=== PATIENT | female | born 1955 | race Caucasian/White ===

== ENCOUNTER → 2019-02-17 13:44 | Outpatient (CLI) | payer MEDICARE, SELFPAY ==
--- NOTE | 2019-02-17 13:50 | US_ITS ---
PROCEDURE: US TRANSVAGINAL CLINICAL INDICATION: POST MENOPAUSAL BLEEDING COMPARISON: No exams were available for comparison FINDINGS: UTERUS: Status post hysterectomy. The vaginal cuff has an unremarkable appearance. LEFT OVARY: 1.9 x 1.1 cm. Unremarkable RIGHT OVARY: Not visualized The no cul-de-sac fluid. Fluid-filled bowel is noted in the pelvis IMPRESSION: Status post hysterectomy. Right ovary was not visualized. The left ovary has an unremarkable appearance Dictated by: Jonah Azul MD 02/17/2019 17:38 Electronically signed by Jonah Azul MD in [place] 02/17/2019 17:38
== END ==
PROVIDERS: PCP Family Medicine; Visit Provider Nurse Practitioner
DX: N95.0 Postmenopausal bleeding (principal)
CPT/HCPCS: 76830

== ENCOUNTER → 2019-12-28 13:08 | Outpatient (CLI) | payer MEDICARE, SELFPAY ==
--- NOTE | 2019-12-28 13:19 | XR_ITS ---
PROCEDURE: XR FOOT LT MIN 3V CLINICAL INDICATION: L FOOT PAIN COMPARISON: CR FTL3 FOOT-LT-3 VIEWS from 02/01/2016 FINDINGS: Osteoarthritic changes are present at the metatarsal tarsal joint with mild metatarsal varus. Hypertrophic changes are present at the base of the 1st metatarsal tarsal junction laterally. Central erosive changes are present involving the distal aspect of the proximal phalanx of the 2nd and 3rd digit with seagull deformity with decrease in the joint space at this level. This may be seen with erosive osteoarthritis . There are mild osteoarthritic changes of the 1st metatarsophalangeal joint. No acute fracture or dislocation is evident. 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
== END ==
PROVIDERS: PCP Family Medicine; Visit Provider Family Medicine
DX: M79.672 Pain in left foot (principal)
CPT/HCPCS: 73630

== ENCOUNTER → 2021-12-24 06:16 | Outpatient (CLI) | payer MEDICARE, SELFPAY ==
[2021-12-24 18:36] LABS: Chloride 99 mmol/L (98-107); Potassium 4.7 mmoL/L (3.5-5.1); Sodium 136 mmol/L (136-145)
[2021-12-24 18:38] LABS: Blood Urea Nitrogen 11 mg/dl (7-17); Estimated Glomerular Filt Rate 100 ml/min (>60); GFR (African American) 121 ML/MIN (>60)
[2021-12-24 18:39] LABS: Alanine Aminotransferase 22 U/L (12-78); Albumin/Globulin Ratio 1.5 (1.1-1.8); Alkaline Phosphatase 108 U/L (38-126); Anion Gap 16.7 mEq/L (5-15); Aspartate Amino Transferase 33 U/L (14-36); Carbon Dioxide 25 mmol/L (22.0-30.0); Globulin 2.7 g/dL (1.3-3.2); Glucose 240 mg/dl (74-100); Total Protein,Serum 6.7 g/dl (6.3-8.2)
[2021-12-24 19:14] LABS: Thyroid Stimulating Hormone 0.13 uIU/mL (0.465-4.68)
[2021-12-24 19:24] LABS: Bilirubin,Total < 0.1 mg/dl (0.2-1.3)
[2021-12-24 21:10] LABS: Erythrocyte Sedimentation Rate 21 mm/hr (0-30)
[2021-12-24 22:33] LABS: Vitamin B12 528 pg/mL (239-931)
== END ==
PROVIDERS: PCP Family Medicine; Visit Provider Family Medicine
DX: E11.9 Type 2 diabetes mellitus without complications (principal); M54.9 Dorsalgia, unspecified; Z79.84 Long term (current) use of oral hypoglycemic drugs; Z79.899 Other long term (current) drug therapy
CPT/HCPCS: 80053; 82607; 84443; 85651

== ENCOUNTER → 2022-05-26 23:29 | Outpatient (CLI) | payer MEDICARE, SELFPAY ==
[2022-05-26 18:29] LABS: Creatinine,Urine Random 105 mg/dL (Not Estab.)
[2022-05-26 18:32] LABS: Alanine Aminotransferase 12 U/L (12-78); Albumin Level 3.9 g/dl (3.5-5.0); Albumin/Globulin Ratio 1.6 (1.1-1.8); Alkaline Phosphatase 72 U/L (38-126); Anion Gap 6.8 mEq/L (5-15); Aspartate Amino Transferase 20 U/L (14-36); Bilirubin,Total 0.7 mg/dl (0.2-1.3); Blood Urea Nitrogen 16 mg/dl (7-17); Calcium 8.7 mg/dl (8.4-10.2); Carbon Dioxide 30 mmol/L (22.0-30.0); Chloride 101 mmol/L (98-107); Chol/HDL Ratio 3.3 (1-3.5); Cholesterol 150 mg/dl (140-200); Estimated Glomerular Filt Rate 63 ml/min (>60); GFR (African American) 76 ML/MIN (>60); Globulin 2.5 g/dL (1.3-3.2); Glucose 143 mg/dl (74-100); HDL Cholesterol 46 mg/dl (40-60); Potassium 3.8 mmoL/L (3.5-5.1); Sodium 134 mmol/L (136-145); Total Protein,Serum 6.4 g/dl (6.3-8.2); Triglycerides 191 mg/dl (30-150); VLDL Cholesterol 38 mg/dL (0-40)
[2022-05-26 18:43] LABS: Direct LDL Cholesterol 76.24 mg/dL (100-129)
[2022-05-26 18:49] LABS: Free T4 (Free Thyroxine) 1.03 ng/dl (0.78-2.19)
[2022-05-26 19:01] LABS: Microalbumin < 6.000 mg/L (0-16.7)
[2022-05-26 19:03] LABS: Thyroid Stimulating Hormone 0.09 uIU/mL (0.465-4.68)
[2022-05-26 19:11] LABS: Basophils % 0.6 % (0.1-2.0); Eosinophils # 0.2 K/mm3 (0.0-0.4); Hematocrit 40.2 % (37.0-47.0); Hemoglobin 12.8 g/dL (12.2-16.2); Lymphocytes # 1.4 K/mm3 (0.7-4.5); Lymphocytes % 18.2 % (10-50); Mean Corpuscular HGB Conc 31.9 g/dL (31.8-35.4); Mean Corpuscular Hemoglobin 29.6 pg (27.0-31.2); Mean Corpuscular Volume 92.7 fl (81-99); Mean Platelet Volume 8.8 fl (7.4-10.4); Monocytes # 0.4 K/mm3 (0.1-1.0); Monocytes % 5.2 % (1.7-9.3); Neutrophils # 5.8 K/mm3 (1.8-7.8); Neutrophils % 74.1 % (37.0-80.0); Platelet Count 391 K/mm3 (142-424); Red Blood Count 4.33 M/mm3 (4.20-5.40); Red Cell Distribution Width 13.4 % (11.5-17.5); White Blood Count 7.8 K/mm3 (4.8-10.8)
[2022-05-26 19:45] LABS: Hemoglobin A1C 5.8 % (4.0-6.0)
== END ==
PROVIDERS: PCP Nurse Practitioner; Visit Provider Nurse Practitioner
DX: E03.9 Hypothyroidism, unspecified (principal); E11.9 Type 2 diabetes mellitus without complications; E78.5 Hyperlipidemia, unspecified; I10 Essential (primary) hypertension; Z79.84 Long term (current) use of oral hypoglycemic drugs
CPT/HCPCS: 80053; 80061; 82043; 82570; 83036; 84439; 84443; 85025

== ENCOUNTER → 2022-09-08 14:40 | Outpatient (CLI) | payer MEDICARE, SELFPAY ==
[2022-09-08 19:30] LABS: Hemoglobin A1C 5.7 % (4.0-6.0)
[2022-09-08 19:34] LABS: Alanine Aminotransferase 13 U/L (12-78); Albumin Level 4.1 g/dl (3.5-5.0); Albumin/Globulin Ratio 1.6 (1.1-1.8); Alkaline Phosphatase 95 U/L (38-126); Aspartate Amino Transferase 22 U/L (14-36); Bilirubin,Total 0.4 mg/dl (0.2-1.3); Blood Urea Nitrogen 12 mg/dl (7-17); Calcium 9.3 mg/dl (8.4-10.2); Carbon Dioxide 30 mmol/L (22.0-30.0); Chloride 97 mmol/L (98-107); Chol/HDL Ratio 2.4 (1-3.5); Cholesterol 200 mg/dl (140-200); Estimated Glomerular Filt Rate 84 ml/min (>60); GFR (African American) 101 ML/MIN (>60); Globulin 2.6 g/dL (1.3-3.2); Glucose 107 mg/dl (74-100); HDL Cholesterol 82 mg/dl (40-60); Sodium 137 mmol/L (136-145); Total Protein,Serum 6.7 g/dl (6.3-8.2); Triglycerides 187 mg/dl (30-150); VLDL Cholesterol 37 mg/dL (0-40)
[2022-09-08 19:45] LABS: Direct LDL Cholesterol 92.84 mg/dL (100-129)
[2022-09-08 19:53] LABS: Free T4 (Free Thyroxine) 1.18 ng/dl (0.78-2.19)
[2022-09-08 19:56] LABS: 25-OH Vitamin D, Total < 12.8 ng/mL (30-100)
[2022-09-08 20:07] LABS: Thyroid Stimulating Hormone < 0.02 uIU/mL (0.465-4.68)
[2022-09-08 20:26] LABS: Vitamin B12 333 pg/mL (239-931)
== END ==
PROVIDERS: PCP Nurse Practitioner; Visit Provider Nurse Practitioner
DX: E03.9 Hypothyroidism, unspecified (principal); E11.9 Type 2 diabetes mellitus without complications; E53.8 Deficiency of other specified B group vitamins; E55.9 Vitamin D deficiency, unspecified; E78.5 Hyperlipidemia, unspecified; I10 Essential (primary) hypertension; F31.9 Bipolar disorder, unspecified; Z79.84 Long term (current) use of oral hypoglycemic drugs
CPT/HCPCS: 80053; 80061; 82306; 82607; 83036; 84439; 84443

== ENCOUNTER → 2023-03-17 07:13 | Outpatient (CLI) | payer MEDICARE, SELFPAY ==
[2023-03-17 19:59] LABS: Alanine Aminotransferase 18 U/L (12-78); Albumin Level 4.4 g/dl (3.5-5.0); Albumin/Globulin Ratio 1.5 (1.1-1.8); Alkaline Phosphatase 87 U/L (38-126); Anion Gap 9.7 mEq/L (5-15); Aspartate Amino Transferase 31 U/L (14-36); Bilirubin,Total 0.5 mg/dl (0.2-1.3); Blood Urea Nitrogen 17 mg/dl (7-17); Calcium 8.9 mg/dl (8.4-10.2); Carbon Dioxide 30 mmol/L (22.0-30.0); Chloride 101 mmol/L (98-107); Chol/HDL Ratio 2.4 (1-3.5); Cholesterol 214 mg/dl (140-200); Estimated Glomerular Filt Rate 63 ml/min (>60); GFR (African American) 76 ML/MIN (>60); Glucose 113 mg/dl (74-100); HDL Cholesterol 88 mg/dl (40-60); Potassium 3.7 mmoL/L (3.5-5.1); Sodium 137 mmol/L (136-145); Total Protein,Serum 7.4 g/dl (6.3-8.2); Triglycerides 179 mg/dl (30-150); VLDL Cholesterol 36 mg/dL (0-40)
[2023-03-17 20:05] LABS: Hemoglobin A1C 5.5 % (4.0-6.0)
[2023-03-17 20:12] LABS: Direct LDL Cholesterol 106.22 mg/dL (100-129)
[2023-03-17 20:13] LABS: Free T4 (Free Thyroxine) 1.07 ng/dl (0.78-2.19)
[2023-03-17 20:27] LABS: Thyroid Stimulating Hormone 0.99 uIU/mL (0.465-4.68)
[2023-03-17 20:58] LABS: Vitamin B12 > 1000 pg/mL (239-931)
== END ==
PROVIDERS: PCP Nurse Practitioner; Visit Provider Nurse Practitioner
DX: E03.9 Hypothyroidism, unspecified (principal); E11.9 Type 2 diabetes mellitus without complications; E53.8 Deficiency of other specified B group vitamins; E78.5 Hyperlipidemia, unspecified; F31.9 Bipolar disorder, unspecified; I10 Essential (primary) hypertension; Z79.84 Long term (current) use of oral hypoglycemic drugs
CPT/HCPCS: 80053; 80061; 82607; 83036; 84439; 84443

== ENCOUNTER 2023-06-09 18:50 | Outpatient (CLI) | payer MEDICARE, SELFPAY ==
[2023-06-09 18:48] LABS: Alanine Aminotransferase 11 U/L (12-78); Albumin/Globulin Ratio 1.5 (1.1-1.8); Alkaline Phosphatase 94 U/L (38-126); Anion Gap 10.3 mEq/L (5-15); Aspartate Amino Transferase 20 U/L (14-36); Bilirubin,Total 0.3 mg/dl (0.2-1.3); Blood Urea Nitrogen 14 mg/dl (7-17); Calcium 9.4 mg/dl (8.4-10.2); Carbon Dioxide 31 mmol/L (22.0-30.0); Chloride 100 mmol/L (98-107); Estimated Glomerular Filt Rate 72 ml/min (>60); GFR (African American) 87 ML/MIN (>60); Globulin 2.7 g/dL (1.3-3.2); Glucose 85 mg/dl (74-100); Potassium 4.3 mmoL/L (3.5-5.1); Sodium 137 mmol/L (136-145); Total Protein,Serum 6.7 g/dl (6.3-8.2)
[2023-06-09 19:13] LABS: Thyroid Stimulating Hormone 0.03 uIU/mL (0.465-4.68)
== END 2023-06-09 23:59 ==
LOC: LAB.DROPOF 18:50
PROVIDERS: PCP Family Medicine; Visit Provider Family Medicine
DX: I10 Essential (primary) hypertension; E03.8 Other specified hypothyroidism
CPT/HCPCS: 80053; 84443

== ENCOUNTER 2023-09-08 15:49 | Outpatient (CLI) | payer MEDICARE, SELFPAY ==
[2023-09-08 18:30] LABS: Hemoglobin A1C 5.7 % (4.0-6.0)
[2023-09-08 18:34] LABS: Creatinine,Urine Random 180 mg/dL (Not Estab.); Microalbumin/Creatinine Ratio 4.8
[2023-09-08 18:38] LABS: Alanine Aminotransferase 11 U/L (12-78); Albumin Level 4.2 g/dl (3.5-5.0); Albumin/Globulin Ratio 1.4 (1.1-1.8); Alkaline Phosphatase 70 U/L (38-126); Anion Gap 12.9 mEq/L (5-15); Aspartate Amino Transferase 22 U/L (14-36); Bilirubin,Total 0.5 mg/dl (0.2-1.3); Blood Urea Nitrogen 18 mg/dl (7-17); Calcium 9.7 mg/dl (8.4-10.2); Carbon Dioxide 32 mmol/L (22.0-30.0); Chloride 99 mmol/L (98-107); Chol/HDL Ratio 3.3 (1-3.5); Cholesterol 238 mg/dl (140-200); Estimated Glomerular Filt Rate 41 ml/min (>60); GFR (African American) 49 ML/MIN (>60); Glucose 97 mg/dl (74-100); HDL Cholesterol 73 mg/dl (40-60); Potassium 3.9 mmoL/L (3.5-5.1); Sodium 140 mmol/L (136-145); Total Protein,Serum 7.2 g/dl (6.3-8.2); Triglycerides 321 mg/dl (30-150); VLDL Cholesterol 64 mg/dL (0-40)
[2023-09-08 18:49] LABS: Direct LDL Cholesterol 106.04 mg/dL (100-129); Free T4 (Free Thyroxine) 1.22 ng/dl (0.78-2.19)
[2023-09-08 18:54] LABS: 25-OH Vitamin D, Total 38.6 ng/mL (30-100)
[2023-09-08 19:07] LABS: Thyroid Stimulating Hormone 0.51 uIU/mL (0.465-4.68)
[2023-09-08 19:33] LABS: Vitamin B12 > 1000 pg/mL (239-931)
== END 2023-09-08 23:59 | disposition home or self-care (01) ==
LOC: LAB.DROPOF 09-09 15:50
PROVIDERS: PCP Nurse Practitioner; Visit Provider Nurse Practitioner
DX: E55.9 Vitamin D deficiency, unspecified (principal); E11.9 Type 2 diabetes mellitus without complications; I10 Essential (primary) hypertension; E78.5 Hyperlipidemia, unspecified; E03.9 Hypothyroidism, unspecified; E53.8 Deficiency of other specified B group vitamins; Z79.84 Long term (current) use of oral hypoglycemic drugs; Z79.85 Long-term (current) use of injectable non-insulin antidiabetic drugs; Z68.27 Body mass index [BMI] 27.0-27.9, adult
CPT/HCPCS: 80053; 80061; 82043; 82306; 82570; 82607; 83036; 84439; 84443

== ENCOUNTER 2023-09-25 09:21 | Outpatient (CLI) | payer MEDICARE, SELFPAY ==
[2023-09-25 18:54] LABS: Creatinine,Urine Random 151 mg/dL (Not Estab.); Microalbumin < 6.000 mg/L (0-16.7)
== END 2023-09-25 23:59 | disposition home or self-care (01) ==
LOC: LAB.DROPOF 09-28 09:22
PROVIDERS: PCP Nurse Practitioner; Visit Provider Nurse Practitioner
DX: R32 Unspecified urinary incontinence (principal)
CPT/HCPCS: 82043; 82570

== ENCOUNTER 2023-10-14 10:39 | Outpatient (CLI) | payer MEDICARE, SELFPAY ==
[2023-10-14 18:54] LABS: Anion Gap 8.4 mEq/L (5-15); Blood Urea Nitrogen 19 mg/dl (7-17); Calcium 9.3 mg/dl (8.4-10.2); Carbon Dioxide 30 mmol/L (22.0-30.0); Chloride 105 mmol/L (98-107); Estimated Glomerular Filt Rate 41 ml/min (>60); GFR (African American) 49 ML/MIN (>60); Glucose 94 mg/dl (74-100); Potassium 4.4 mmoL/L (3.5-5.1); Sodium 139 mmol/L (136-145)
== END 2023-10-14 23:59 | disposition home or self-care (01) ==
LOC: LAB.DROPOF 10-15 09:07
PROVIDERS: PCP Nurse Practitioner; Visit Provider Nurse Practitioner
DX: E11.9 Type 2 diabetes mellitus without complications (principal); Z79.85 Long-term (current) use of injectable non-insulin antidiabetic drugs
CPT/HCPCS: 80048

== ENCOUNTER 2023-11-12 10:17 | Outpatient (CLI) | payer MEDICARE, SELFPAY ==
[2023-11-12 19:43] LABS: Alanine Aminotransferase 10 U/L (12-78); Albumin Level 3.7 g/dl (3.5-5.0); Albumin/Globulin Ratio 1.3 (1.1-1.8); Alkaline Phosphatase 61 U/L (38-126); Aspartate Amino Transferase 19 U/L (14-36); Bilirubin,Total 0.4 mg/dl (0.2-1.3); Blood Urea Nitrogen 22 mg/dl (7-17); Carbon Dioxide 31 mmol/L (22.0-30.0); Chloride 103 mmol/L (98-107); Chol/HDL Ratio 2.8 (1-3.5); Cholesterol 202 mg/dl (140-200); Estimated Glomerular Filt Rate 41 ml/min (>60); GFR (African American) 49 ML/MIN (>60); Globulin 2.8 g/dL (1.3-3.2); Glucose 90 mg/dl (74-100); HDL Cholesterol 72 mg/dl (40-60); Sodium 138 mmol/L (136-145); Total Protein,Serum 6.5 g/dl (6.3-8.2); Triglycerides 159 mg/dl (30-150); VLDL Cholesterol 32 mg/dL (0-40)
[2023-11-12 19:54] LABS: Direct LDL Cholesterol 94.81 mg/dL (100-129)
[2023-11-12 20:07] LABS: Hemoglobin A1C 5.4 % (4.0-6.0)
== END 2023-11-12 23:59 | disposition home or self-care (01) ==
LOC: LAB.DROPOF 11-13 10:18
PROVIDERS: PCP Nurse Practitioner; Visit Provider Nurse Practitioner
DX: E11.9 Type 2 diabetes mellitus without complications (principal); N28.9 Disorder of kidney and ureter, unspecified; E78.5 Hyperlipidemia, unspecified
CPT/HCPCS: 80053; 80061; 83036

== ENCOUNTER 2024-01-21 18:37 | Outpatient (CLI) | payer MEDICARE, SELFPAY ==
[2024-01-21 19:13] LABS: Albumin Level 4.2 g/dl (3.5-5.0); Chloride 100 mmol/L (98-107); Potassium 3.6 mmoL/L (3.5-5.1); Sodium 139 mmol/L (136-145)
[2024-01-21 19:16] LABS: Alanine Aminotransferase 12 U/L (12-78); Albumin/Globulin Ratio 1.5 (1.1-1.8); Alkaline Phosphatase 80 U/L (38-126); Anion Gap 10.6 mEq/L (5-15); Aspartate Amino Transferase 20 U/L (14-36); Bilirubin,Total 0.5 mg/dl (0.2-1.3); Blood Urea Nitrogen 15 mg/dl (7-17); Calcium 9.4 mg/dl (8.4-10.2); Carbon Dioxide 32 mmol/L (22.0-30.0); Cholesterol 191 mg/dl (140-200); Estimated Glomerular Filt Rate 55 ml/min (>60); GFR (African American) 67 ML/MIN (>60); Globulin 2.8 g/dL (1.3-3.2); Glucose 126 mg/dl (74-100); Triglycerides 164 mg/dl (30-150); VLDL Cholesterol 33 mg/dL (0-40)
[2024-01-21 19:17] LABS: Chol/HDL Ratio 2.8 (1-3.5); HDL Cholesterol 68 mg/dl (40-60)
[2024-01-21 19:32] LABS: Hemoglobin A1C 5.7 % (4.0-6.0)
[2024-01-21 19:34] LABS: Free T4 (Free Thyroxine) 1.24 ng/dl (0.78-2.19)
[2024-01-21 19:44] LABS: Direct LDL Cholesterol 85.06 mg/dL (100-129)
[2024-01-21 19:47] LABS: Thyroid Stimulating Hormone 0.02 uIU/mL (0.465-4.68)
== END 2024-01-21 23:59 | disposition home or self-care (01) ==
LOC: LAB.DROPOF 18:38
PROVIDERS: PCP Nurse Practitioner; Visit Provider Nurse Practitioner
DX: E11.9 Type 2 diabetes mellitus without complications (principal); E78.5 Hyperlipidemia, unspecified; E03.9 Hypothyroidism, unspecified; N28.9 Disorder of kidney and ureter, unspecified
CPT/HCPCS: 80053; 80061; 83036; 84439; 84443

== ENCOUNTER 2024-04-19 08:52 | Outpatient (CLI) | payer MEDICARE, OTHER, SELFPAY ==
[2024-04-19 18:21] LABS: Basophils % 0.6 % (0.1-2.0); Eosinophils # 0.1 K/mm3 (0.0-0.4); Hematocrit 39.9 % (37.0-47.0); Hemoglobin 12.9 g/dL (12.2-16.2); Lymphocytes # 1.9 K/mm3 (0.7-4.5); Lymphocytes % 29.4 % (10-50); Mean Corpuscular HGB Conc 32.3 g/dL (31.8-35.4); Mean Corpuscular Hemoglobin 29.7 pg (27.0-31.2); Mean Corpuscular Volume 91.7 fl (81-99); Mean Platelet Volume 9.7 fl (7.4-10.4); Monocytes # 0.5 K/mm3 (0.1-1.0); Monocytes % 8.2 % (1.7-9.3); Neutrophils # 3.9 K/mm3 (1.8-7.8); Neutrophils % 59.5 % (37.0-80.0); Platelet Count 275 K/mm3 (142-424); Red Blood Count 4.35 M/mm3 (4.20-5.40); Red Cell Distribution Width 13.2 % (11.5-17.5); White Blood Count 6.6 K/mm3 (4.8-10.8)
[2024-04-19 18:53] LABS: Alanine Aminotransferase 12 U/L (12-78); Albumin/Globulin Ratio 1.5 (1.1-1.8); Alkaline Phosphatase 77 U/L (38-126); Aspartate Amino Transferase 22 U/L (14-36); Bilirubin,Total 0.2 mg/dl (0.2-1.3); Blood Urea Nitrogen 24 mg/dl (7-17); Calcium 9.1 mg/dl (8.4-10.2); Carbon Dioxide 29 mmol/L (22.0-30.0); Chloride 99 mmol/L (98-107); Chol/HDL Ratio 2.8 (1-3.5); Cholesterol 200 mg/dl (140-200); Estimated Glomerular Filt Rate 55 ml/min (>60); GFR (African American) 67 ML/MIN (>60); Globulin 2.6 g/dL (1.3-3.2); Glucose 101 mg/dl (74-100); HDL Cholesterol 72 mg/dl (40-60); Sodium 137 mmol/L (136-145); Total Protein,Serum 6.6 g/dl (6.3-8.2); Triglycerides 261 mg/dl (30-150); VLDL Cholesterol 52 mg/dL (0-40)
[2024-04-19 18:54] LABS: Anion Gap 13.2 mEq/L (5-15); Potassium 4.2 mmoL/L (3.5-5.1)
[2024-04-19 19:22] LABS: Hemoglobin A1C 5.9 % (4.0-6.0)
[2024-04-19 19:22] LABS: Creatinine,Urine Random 79 mg/dL (Not Estab.); Microalbumin < 6.000 mg/L (0-16.7)
[2024-04-19 19:24] LABS: Thyroid Stimulating Hormone 3.09 uIU/mL (0.465-4.68)
[2024-04-19 19:39] LABS: 25-OH Vitamin D, Total 37.1 ng/mL (30-100)
[2024-04-19 19:41] LABS: Vitamin B12 994 pg/mL (239-931)
[2024-04-19 19:46] LABS: Direct LDL Cholesterol 110.24 mg/dL (100-129)
[2024-04-19 21:01] LABS: Free T4 (Free Thyroxine) 1.05 ng/dl (0.78-2.19)
== END 2024-04-19 23:59 | disposition home or self-care (01) ==
LOC: LAB.DROPOF 04-20 13:32
PROVIDERS: PCP Nurse Practitioner; Visit Provider Nurse Practitioner
DX: E11.9 Type 2 diabetes mellitus without complications (principal); E78.5 Hyperlipidemia, unspecified; I10 Essential (primary) hypertension; E03.9 Hypothyroidism, unspecified; E55.9 Vitamin D deficiency, unspecified; E53.8 Deficiency of other specified B group vitamins
CPT/HCPCS: 80053; 80061; 82043; 82306; 82570; 82607; 83036; 84439; 84443; 85025

== ENCOUNTER 2024-05-31 10:45 | Outpatient (CLI) | payer MEDICARE, OTHER, SELFPAY ==
--- NOTE | 2024-05-31 10:48 | XR_ITS ---
FINAL REPORT CLINICAL HISTORY: left foot pain, history foot surgery COMPARISON: None FINDINGS: LEFT FOOT: Three views show no evidence of acute displaced fracture or dislocation of the visualized bony architecture. There are postoperative changes involving the second, third, and fourth proximal phalanges. Moderate degenerative changes present in the midfoot. There is no evidence of healing fracture. A minimal plantar calcaneal spur is identified. IMPRESSION: Postoperative changes of the 2nd through 4th proximal phalanges. Moderate degenerative change of the midfoot. Reviewed, Interpreted and Dictated by Zay Cortes MD Transcribed by Ayla Lacey Authenticated and [facility]
== END 2024-05-31 23:59 | disposition home or self-care (01) ==
LOC: RAD 10:46
PROVIDERS: PCP Nurse Practitioner; Visit Provider Nurse Practitioner
DX: M79.672 Pain in left foot (principal)
CPT/HCPCS: 73630

== ENCOUNTER 2024-10-25 14:57 | Outpatient (CLI) | payer MEDICARE, SELFPAY ==
[2024-10-25 19:45] LABS: Albumin Level 4.3 g/dl (3.5-5.0); Chloride 99 mmol/L (98-107); Potassium 4.4 mmoL/L (3.5-5.1); Sodium 133 mmol/L (136-145)
[2024-10-25 19:48] LABS: Alanine Aminotransferase 10 U/L (12-78); Albumin/Globulin Ratio 1.5 (1.1-1.8); Alkaline Phosphatase 76 U/L (38-126); Anion Gap 10.4 mEq/L (5-15); Aspartate Amino Transferase 20 U/L (14-36); Bilirubin,Total 0.5 mg/dl (0.2-1.3); Blood Urea Nitrogen 19 mg/dl (7-17); Calcium 9.4 mg/dl (8.4-10.2); Carbon Dioxide 28 mmol/L (22.0-30.0); Creatinine,Serum 0.90 mg/dl (0.52-1.04); Estimated Glomerular Filt Rate 62 ml/min (>60); GFR (African American) 75 ML/MIN (>60); Globulin 2.8 g/dL (1.3-3.2); Glucose 113 mg/dl (74-100); Total Protein,Serum 7.1 g/dl (6.3-8.2)
[2024-10-25 20:17] LABS: Thyroid Stimulating Hormone 0.35 uIU/mL (0.465-4.68)
--- OUTSIDE RECORDS SUMMARY | 2024-10-26 11:40 | XMS_ITS | Clinical Summary ---
Author Organization [facility] Address [address] [place] [address] Phone Care Team Providers Care Boot Trimmer Name Role Phone Gabino Kong MD Primary Care Provider [phone] [phone] Allergies Active Allergy Reactions Criticality Noted Date Comments Benzodiazepines Other (See Comments) 10/13/2012 Xanax; causes congestion Lisinopril Swelling High 07/03/2021 Medications * This document contains information received from the source organization and may not represent a complete record from that organization. Norethindrone Ac-Eth Estradiol 1-5 mg-mcg Oral Tablet Take by mouth. 1 X DAY Active levothyroxine (SYNTHROID) 75 mcg tablet Take 75 mcg by mouth daily. 1 X DAY Active metformin (GLUCOPHAGE) 1,000 mg tablet Take 1,000 mg by mouth 2 times daily (with meals). Active escitalopram oxalate (LEXAPRO) 20 mg Oral Tablet TAKE 1 TABLET EVERY DAY 30 tablet 12 03/01/2014 Active clonazePAM (KLONOPIN) 1 mg Oral Tablet Take 1 Tab by mouth 2 times daily. 60 Tab 2 09/07/2014 Active lamoTRIgine (LAMICTAL) 150 mg Oral Tablet Take 1 Tab by mouth 3 times daily. 90 Tab 3 09/07/2014 Active losartan (COZAAR) 25 mg Oral TabletIndication s:OAB (overactive bladder) 03/21/2021 Active potassium chloride (KLOR-CON) 10 mEq Oral Tablet Sustained ReleaseIndicatio ns:OAB (overactive bladder) 20 mEq once. 03/15/2021 Active pravastatin (PRAVACHOL) 40 mg Oral TabletIndication s:OAB (overactive bladder) 02/06/2021 Active sulindac (CLINORIL) 200 mg Oral TabletIndication s:OAB (overactive bladder) 02/22/2021 Active triamterene-hydr ochlorothiazide (MAXZIDE-25) 37.5-25 mg Oral TabletIndication s:OAB (overactive bladder) 02/18/2021 Active pantoprazole (PROTONIX) 40 mg Oral Tablet, Delayed Release (E.C.) Take 1 Tablet by mouth daily. 30 Tablet 2 07/15/2021 Active ondansetron (ZOFRAN) 4 mg Oral Tablet Take 1 Tablet by mouth every 6 hours as needed for up to 10 doses. 10 Tablet 2 08/20/2021 Active Active Problems Patient Care Coordination No te Formatting of this note migh t be different from the original. Dr. Néstor Christensen 06/27/14 Problem Noted Date Diagnosed Date Oxygen desaturation 08/20/2021 Obesity, Class II, BMI 35-39.9 07/18/2021 LAP-BAND surgery status 07/18/2021 Dysphagia 07/15/2021 Encounter for screening colonoscopy 07/15/2021 Special screening for malignant neoplasms, colon 07/03/2021 Overview (07/03/2021): Added automatically from request for surgery [id number] Esophageal dysphagia 07/03/2021 Overview (07/03/2021): Added automatically from request for surgery [id number] Mixed incontinence 04/05/2021 Rectocele 04/05/2021 Hypertension 03/20/2009 Diabetes mellitus 03/20/2009 Depression 03/20/2009 Thyroid disorder 03/20/2009 Uterine prolapse 03/20/2009 Cystocele 03/20/2009 Resolved Problems Problem Noted Date Diagnosed Date Resolved Date Hammertoe of second toe of left foot 07/28/2016 07/28/2016 Ganglion cyst of left foot 07/28/2016 0 07/28/2016 Immunizations Immunization Administration Dates Next Due Influenza Vaccine, Unspecified Formulation 01/22 Tdap 07/17/2024 Surgical History Surgery Date Site/Laterality Comments TONSILLECTOMY AND ADENOIDECTOMY VAGAL NERVE STIMULATOR 03/20/2006 HYSTERECTOMY HAMMER TOE SURGERY 07/28/2016 Foot/Left CORRECTION HAMMERTOE DEFORMITY 2ND AND 3RD DIGITS AND ADDUCTED HAMMERTOE 4TH DIGIT LEFT FOOT AND EXCISION GANGLION CYST LEFT FOOT; Surgeon: Eulogio Gutierrez DPM; Location: [facility] MAIN OR; Service: Orthopedics Medical devices from this surgery are in the Medical Devices section. FOOT SURGERY 07/28/2016 Foot/Left Surgeon: Eulogio Gutierrez DPM; Location: [facility] MAIN OR; Service: Orthopedics Medical devices from this surgery are in the Medical Devices section. CATARACT EXTRACTION EXTRACAPSULAR W/ INTRAOCULAR LENS IMPLANTATION 05/08/[address] Say Ramires CATARACT EXTRACTION EXTRACAPSULAR W/ INTRAOCULAR LENS IMPLANTATION 06/05/[address] Say Ramires GASTRIC BYPASS SURGERY 08/20/2021 N/A Laparoscopic, gastric band removal. ; Surgeon: Jose Johnson MD; Location: [facility] MAIN OR; Service: General Medical History Medical History Date Comments Hypertension Diabetes mellitus (HCC) Arthritis Thyroid disease Depression Family History Medical History Relation Name Comments Heart Disease Father Stroke Father Cancer Maternal Aunt Colon & breast cancer Cancer Maternal Uncle colon cancer Cancer Mother bone cancer Mult Sclerosis Sister Scoliosis Sister Relation Name Status Comments Father 2004 Maternal Aunt Maternal Uncle Mother Sister Alive Social History Tobacco Use Types Packs/Day Years Used Date Smoking Tobacco: Never Smokeless Tobacco: Never Alcohol Use Standard Drinks/Week Comments No 0 (1 standard drink = 0.6 oz pur e alcohol) Comments No Sex and Gender Information Value Date Recorded Sex Assigned at Not on file Legal Sex Female 10:02 AM EDT Gender Identity Not on file Sexual Orientation Not on file Obstetrics History Last Filed Vital Signs Vital Sign Reading Time Taken Comments Blood Pressure 139/90 07/17/2024 3:47 PM EDT Pulse 94 07/17/2024 3:43 PM EDT Temperature 36.5 C (97.7 F) 07/17/2024 3:43 PM EDT Respiratory Rate 20 07/17/2024 3:43 PM EDT Oxygen Saturation 98% 07/17/2024 3:43 PM EDT Inhaled Oxygen Concentration - - Weight 90.7 kg (199 lb 14.4 oz) 022 12:38 PM EDT Height 154.9 cm (5' 1 ) 08/20/2021 12:3 8 PM EDT Body Mass Index 37.77 08/20/2021 12:38 PM EDT Plan of Treatment Health Maintenance Due Date Last Done Comments Wellness Exam Medicare 1958 Kidney Health: uACR 1966 Lipids 1966 Diabetic Eye Exam 1974 Hemoglobin A1c 1974 Hepatitis C Screening 1974 Cologuard 2001 FIT 2001 Sigmoidoscopy 2001 Virtual Colonography 2001 Zoster (2 of 3) 06/19/2016 04/24/2016 Pneumococcal Vaccine 50+ (2 of 2 - PPSV23, PCV20, or PCV21) 06/07/2021 04/12/2021 COVID-19 Vaccine (3 - season) 2023 09/15/2020, 08/18/2020 Influenza Vaccine (#1) 2024 , 12/21/2018, 01/26/2018, Additional history exists Kidney Health: eGFR 07/17/2025 07/17/2024, 06/10/2021, 07/28/2016, Additional history exists Breast Cancer Screening 08/24/2025 08/25/19, 09/02/2022, 08/08/2021, Additional history exists Colon Cancer Screening 07/16/2031 Colonoscopy 07/16/2031 07/15/2021 DTaP/TDaP/Td (3 - Td or Tdap) 07/17/2034 07/17/2024, 04/23/2018, 06/10/1996 Bone Density Screening Completed , 05/05/2016, 03/12/2012 Hepatitis B Vaccine Aged Out No longe r eligible based on patient's age to complete this topic Meningococcal B Vaccine Aged Out No l onger eligible based on patient's age to complete this topic Medical Devices Implanted Type Area Rn Transitional Care Device Identifier Shelf Expiration Date Model / Serial / Lot Iol Vns Left: Chest K-Wire .045 - [id number] Implanted:Qty: 3 on 07/28/2016 by Eulogio Gutierrez DPM at [facility] Left: Toe ACUMED [id number] / / Description:left 2nd toe, 3r d toe, 4th toe Procedures Procedure Name Priority Date/Time Associated Diagnosis Comments BASIC METABOLIC PANEL STAT 07/17/2024 5:04 PM EDT MM MAMMO DIGITAL NASREEN SCREEN BILAT Routine 08/25/2023 1:09 PM EDT Screening mammogram for breast cancer GMED COLONOSCOPY Routine 07/15/2021 9:45 AM EDT DX BONE DENSITY AXIAL SKELETON Routine 02/13/2021 8:48 AM EST Postmenopausal osteoporosis from Last 3 Months or Most Recently Relevant to Health Maintenance Results * (ABNORMAL) BASIC METABOLIC PANEL (07/17/2024 5:04 PM EDT) Sodium 136 136 - 145 mmol/L 07/17/2024 5:22 PM EDT [facility] Potassium 3.5 3.5 - 5.0 mmol/L 07/17/2024 5:22 PM EDT [facility] Chloride 97(L) 98 - 107 mmol/L 07/17/2024 5:22 PM EDT [facility] Total CO2 26 22 - 29 mmol/L 07/17/2024 5:22 PM EDT [facility] Anion Gap 13 7 - 16 mmol/L 07/17/2024 5:22 PM EDT [facility] Calcium 9.0 8.8 - 10.4 mg/dL 07/17/2024 5:22 PM EDT [facility] Glucose Lvl 91 70 - 99 mg/dL 07/17/2024 5:22 PM EDT [facility] BUN 19 8 - 23 mg/dL 07/17/2024 5:22 PM EDT [facility] Creatinine 0.95 0.51 - 1.30 mg/dL 07/17/2024 5:22 PM EDT [facility] eGFR (CKD-EPIcr 2020) 65 >=60 mL/min/1.7 3 m2 07/17/2024 5:22 PM EDT [facility] Comment:Estimated GFR was ca lculated using the CKD-EPIcr (2020) equation refit without race. The equation is recommended by the National Kidney Foundation - [place] [employer] Nephrology Task Force. Blood VENOUS BLOOD / Unknown Venipuncture / Unknown 07/17/2024 5:04 PM EDT 07/17/2024 5:06 PM EDT us Antonio Lawson NURSING TEACHER CHEMISTRY ORDERABLES Final Result [facility] [address] [place] [address] * MM MAMMO DIGITAL NASREEN SCREEN BILAT (08/25/2023 1:09 PM EDT) Anatomical Region Laterality Modality Breast Bilateral Mammography 08/25/2023 1:26 PM EDT Impressions 08/25/2023 1:26 PM EDT Negative ([id number]-5) ~ RECOMMENDATION: Routine screening mammogram in 1 year. ~ DISCLAIMER * Any patient with a palpable abnormality, unexplained by breast imaging, should be managed on clinical basis by the attending physician. * Breast imaging has a false negative rate of 15%. * The patient was notified by mail of the results of this examination. *The patient's information was entered into a reminder system with a target due date for the next mammogram, in accordance with the [place] [employer] and the Society of Breast Imaging recommendations. Narrative 08/25/2023 1:26 PM EDT Procedure:MM MAMMO DIGITAL NASREEN SCREEN BILAT ~ Reason for exam: screening, asymptomatic. Z12.31-Encounter for screening mammogram for malignant neoplasm of [id number]-PUL-77-CM ~ MM MAMMO DIGITAL NASREEN SCREEN BILAT Bilateral CC and MLO view(s) were taken. Technologist: Mandy Palma, RT The breast tissue is heterogeneously dense. This may lower the sensitivity of mammography. Prior study comparison: Compared with prior studies the most recent being 09/02/22, 08/08/21 No mammographic evidence of malignancy. ~ Procedure Note Saji Hilliard MD - 08/25/2023 Procedure:MM MAMMO DIGITAL NASREEN SCREEN BILAT ~ Reason for exam: screening, asymptomatic. Z12.31-Encounter for screening mammogram for malignant neoplasm of [id number]-CM ~ MM MAMMO DIGITAL NASREEN SCREEN BILAT Bilateral CC and MLO view(s) were taken. Technologist: Mandy Palma, RT The breast tissue is heterogeneously dense. This may lower thesensitivity of mammography. Prior study comparison: Compared with prior studies the most recentbeing 09/02/22, 08/08/21 No mammographic evidence of malignancy. ~ IMPRESSION: Negative ([id number]-[id number]-5) ~ RECOMMENDATION: Routine screening mammogram in 1 year. ~ DISCLAIMER * Any patient with a palpable abnormality, unexplained by breast imaging, should be managed on clinical basis by the attending physician. * Breast imaging has a false negative rate of 15%. * The patient was notified by mail of the results of this examination. *The patient's information was entered into a reminder system with atarget due date for the next mammogram, in accordance with the [place] [employer] and the Society of Breast Imaging recommendations. Rosa Deras APRN IMG MAMMOGRAPHY ORDERABLES Fin al Result * GMED COLONOSCOPY (07/15/2021 9:45 AM EDT) 07/15/2021 9:45 AM EDT Impressions [facility] - 08/28/2021 9:06 AM EDT Plan: This section is an excerpt of the full report. Desi Rodriguez MD GI PROCEDURE ORDERABLES Edite d Result - Final [facility] [address] [place] [address] * DX BONE DENSITY AXIAL SKELETON (02/13/2021 8:48 AM EST) Anatomical Region Laterality Modality Dexa Scan 02/13/2021 Narrative 02/13/2021 3:46 PM EST Indication: The patient is presently being monitored while on treatment and requires a bone density assessment. Study was performed on [employer] 5. Bone Density: Region BMD T-score Z-score Femoral Neck (Right) 0.768 -0.7 0.8 Total Hip (Right) 1.017 0.6 1.8 1/3 Radius (Left) 0.774 1.3 3.0 World Health Organization criteria for BMD interpretation classify patients as: Normal (T-score at or above -1.0), Low Bone Density (T-score between -1.0 and -2.5), or Osteoporotic (T-score at or below -2.5). T Scores are reported in Postmenopausal women and in men age 50 and older. Z-scores are reported in females prior to menopause and in males younger than age 50. 10-year Fracture Risk: FRAX not reported because: All T-scores for Spine Total, Hip Total, Femoral Neck at or above -1.0 Treated for osteoporosis Previous Exams: Region Date Age BMD T-score BMD Change Total Hip(Right) 02/13/2021 65 1.017 0.6 -1.3% 05/05/2016 61 1.030 0.7 3.7%* 03/12/2012 56 0.994 0.4 1/3 Forearm(Left) 02/13/2021 65 0.774 1.3 -0.6% 05/05/2016 61 0.779 1.4 1.1% 03/12/2012 56 0.771 1.3 *Denotes significance at 95% confidence level, LSC for AP Spine = 0.032g/cm2, LSC for Total Hip = 0.024 g/cm2, LSC for Distal 1/3 Radius = 0.026 g/cm2, site specific LSC for Total Hip = 0.022 g/cm2, site specific LSC for 1/3 Forearm = 0.026 g/cm2 BMD is shown in g/cm2 and BMD Change indicates change vs previous BMD Clinical Information Provided by Patient: Is being treated for osteoporosis Has taken a prescription medication that prevents/treats osteoporosis in the last year. Has used or is currently using the following medications: Diuretic, Thyroid medication Has had or currently has the following medical conditions: Diabetes Mellitus, Back pain, Depression Patient maximum height was 64.0 Menopause Age: 47 Patient is post menopausal Interpretation: Bone mineral density is in the normal range. A minimum of two years may be required between bone density studies due to inherent testing precision limitations. Intervals between BMD testing should be determined according to each patient's clinical status. The right hip bone mineral density is not significantly changed since the last exam. Although not approved for monitoring therapy the forearm bone mineral density is not significantly changed since the last exam. Reported by: Lori Doll PA-C, CCD on 02/13/2021 11:05:00 AM. Rosa Deras APRN IMG DEXA ORDERABLES Final Resu lt from Last 3 Months or Most Recently Relevant to Health Maintenance Insurance MEDICARE [place] PART A [place] B SUPPLEMENTAL MEDICARE [place] PART A AND B AAR SUPPLEMENTAL Care Teams Boot Trimmer Relationship Specialty Start Date End Date Gabino Kong MD [address] [place] [id number] PCP - General Family Medicine 10/11/12
[2024-10-27 13:22] LABS: Antinuclear Antibodies (ANA) Negative (Negative)
== END 2024-10-25 23:59 | disposition home or self-care (01) ==
LOC: LAB.DROPOF 10-26 11:36
PROVIDERS: PCP Family Medicine; Visit Provider Family Medicine
DX: E03.9 Hypothyroidism, unspecified (principal); M25.50 Pain in unspecified joint; I10 Essential (primary) hypertension
CPT/HCPCS: 80053; 84443; 85651; 86038

== ENCOUNTER 2025-03-21 10:48 | Outpatient (CLI) | payer MEDICARE, SELFPAY ==
[2025-03-21 15:35] LABS: Alanine Aminotransferase 11 U/L (12-78); Albumin Level 4.2 g/dl (3.5-5.0); Albumin/Globulin Ratio 1.4 (1.1-1.8); Alkaline Phosphatase 95 U/L (38-126); Anion Gap 15.2 mEq/L (5-15); Aspartate Amino Transferase 19 U/L (14-36); Bilirubin,Total 0.7 mg/dl (0.2-1.3); Blood Urea Nitrogen 14 mg/dl (7-17); Carbon Dioxide 25 mmol/L (22.0-30.0); Chloride 103 mmol/L (98-107); Creatinine,Serum 1.50 mg/dl (0.52-1.04); Estimated Glomerular Filt Rate 35 ml/min (>60); GFR (African American) 42 ML/MIN (>60); Globulin 2.9 g/dL (1.3-3.2); Potassium 4.2 mmoL/L (3.5-5.1); Sodium 139 mmol/L (136-145); Total Protein,Serum 7.1 g/dl (6.3-8.2)
[2025-03-21 15:49] LABS: Calcium 9.4 mg/dl (8.4-10.2); Glucose 132 mg/dl (74-100)
[2025-03-21 16:05] LABS: Thyroid Stimulating Hormone 0.21 uIU/mL (0.465-4.68)
--- OUTSIDE RECORDS SUMMARY | 2025-03-22 19:24 | XMS_ITS | Clinical Summary ---
Author Organization [facility] Address [address] [place] [address] Phone Care Team Providers Care Recoil Spring Winder Name Role Phone Gabino Kong MD Primary Care Provider [phone] [phone] Allergies Active Allergy Reactions Criticality Noted Date [...] (07/03/2021): Added automatically from request for surgery [id number] Esophageal dysphagia 07/03/2021 Overview (07/03/2021): Added automatically from request for surgery [id number] Mixed incontinence 04/05/2021 Rectocele 04/05/2021 Hypertension 03/20/2009 [...] removal. ; Surgeon: Jose Johnson MD; Location: [facility] MAIN OR; Service: General Medical History Medical [...] on file Sexual Orientation Not on file Last Filed Vital Signs Vital Sign Reading [...] Last Done Comments Wellness Exam Medicare 1959 Lipids 1966 Diabetic Eye Exam 1974 Hemoglobin A1c 1974 Hepatitis C Screening 1974 Kidney Health: uACR 1974 Cologuard 2001 FIT 2001 Sigmoidoscopy 2001 Virtual Colonography 2001 Zoster (2 of 3) 06/19/2016 04/24/2016 Pneumococcal Vaccine 50+ (2 of 2 - PPSV23, PCV20, or PCV21) 06/07/2021 04/12/2021 COVID-19 Vaccine (3 - 2024- season) 2024 09/15/2020, 08/18/2020 Influenza Vaccine (#1) 2024 , [...] this topic Medical Devices Implanted Type Area Account Receivable Clerk Device Identifier Shelf Expiration Date Model / Serial / Lot Iol Vns Left: Chest K-Wire .045 - [id number] Implanted:Qty: 3 on 07/28/2016 by Eulogio Gutierrez DPM at [facility] Left: Toe ACUMED [id number] / / Description:left 2nd toe, 3r d [...] - 145 mmol/L 07/17/2024 5:22 PM EDT [facility] Potassium 3.5 3.5 - 5.0 mmol/L 07/17/2024 5:22 PM EDT [facility] Chloride 97(L) 98 - 107 mmol/L 07/17/2024 5:22 PM EDT [facility] Total CO2 26 22 - 29 mmol/L 07/17/2024 5:22 PM EDT [facility] Anion Gap 13 7 - 16 mmol/L 07/17/2024 5:22 PM EDT [facility] Calcium 9.0 8.8 - 10.4 mg/dL 07/17/2024 5:22 PM EDT [facility] Glucose Lvl 91 70 - 99 mg/dL 07/17/2024 5:22 PM EDT [facility] BUN 19 8 - 23 mg/dL 07/17/2024 5:22 PM EDT [facility] Creatinine 0.95 0.51 - 1.30 mg/dL 07/17/2024 5:22 PM EDT [facility] eGFR (CKD-EPIcr 2020) 65 >=60 mL/min/1.7 3 m2 07/17/2024 5:22 PM EDT [facility] Comment:Estimated GFR was ca lculated using the CKD-EPIcr (2020) equation refit without race. The equation is recommended by the National Kidney Foundation - [place] [employer] of Nephrology Task Force. Blood VENOUS BLOOD / Unknown Venipuncture / Unknown 07/17/2024 5:04 PM EDT 07/17/2024 5:06 PM EDT us Antonio Lawson NUCLEAR PHYSICIST CHEMISTRY ORDERABLES Final Result Performing Organization Address City/State/[facility] Co de Phone Number [address] [address] * MM MAMMO DIGITAL NASREEN SCREEN BILAT (08/25/2023 1:09 PM EDT) Anatomical Region Laterality Modality Breast Bilateral Mammography 08/25/2023 1:26 PM EDT Impressions 08/25/2023 1:26 PM EDT Negative ([id number]) ~ RECOMMENDATION: Routine screening mammogram in 1 [...] the next mammogram, in accordance with the [place] [employer] and the Society of Breast Imaging recommendations. Narrative 08/25/2023 1:26 PM EDT Procedure:MM MAMMO DIGITAL NASREEN SCREEN BILAT ~ Reason for exam: screening, asymptomatic. Z12.31-Encounter for screening mammogram for malignant neoplasm of [id number]-[id number]-CM ~ MM MAMMO DIGITAL NASREEN SCREEN BILAT [...] for screening mammogram for malignant neoplasm of [id number]-[id number]-CM ~ MM MAMMO DIGITAL NASREEN SCREEN BILAT Bilateral CC and MLO view(s) were taken. Technologist: Mandy Palma, RT The breast tissue is heterogeneously dense. This may lower thesensitivity of mammography. Prior study comparison: Compared with prior studies the most recentbeing 09/02/22, 08/08/21 No mammographic evidence of malignancy. ~ IMPRESSION: Negative (JIN-Aizbjarx-4) ~ RECOMMENDATION: Routine screening mammogram in 1 [...] the next mammogram, in accordance with the [place] [employer] and the Society of Breast Imaging recommendations. Rosa Deras APRN IMG MAMMOGRAPHY ORDERABLES Fin al Result * GMED COLONOSCOPY (07/15/2021 9:45 AM EDT) 07/15/2021 9:45 AM EDT Impressions [facility] - 08/28/2021 9:06 AM EDT Plan: This section is an excerpt of the full report. Desi Rodriguez MD GI PROCEDURE ORDERABLES Edite d Result - Final Performing Organization Address City/State/[facility] Co de Phone Number [facility] [address] [place] [phone] * DX BONE DENSITY AXIAL SKELETON (02/13/2021 8:48 AM EST) Anatomical Region Laterality Modality Dexa Scan 02/13/2021 Narrative 02/13/2021 3:46 PM EST Indication: The patient is presently being monitored while on treatment and requires a bone density assessment. Study was performed on [employer] 5. Bone Density: Region BMD T-score Z-score [...] SUPPLEMENTAL MEDICARE [place] PART A AND B [facility] SUPPLEMENTAL Care Teams Recoil Spring Winder Relationship Specialty Start Date End Date Gabino Kong MD [address] [facility] [address] [place] [id number] PCP - General Family Medicine 10/11/12
== END 2025-03-21 23:59 | disposition home or self-care (01) ==
LOC: LAB.DROPOF 03-22 19:22
PROVIDERS: PCP Family Medicine; Visit Provider Family Medicine
DX: E03.9 Hypothyroidism, unspecified (principal); I10 Essential (primary) hypertension
CPT/HCPCS: 80053; 84443